=== PATIENT | female | born 1980 | race Caucasian/White ===

== ENCOUNTER 2024-12-13 06:16 | Day surgery (SDC) | payer OTHER, SELFPAY | END 2024-12-13 12:16 | disposition home or self-care (01) | LOC: GI 06:16 | PROVIDERS: ATTENDING PHYSICIAN Internal Medicine | DX: Z12.11 Encounter for screening for malignant neoplasm of colon (principal); K64.8 Other hemorrhoids; D12.5 Benign neoplasm of sigmoid colon | CPT/HCPCS: 45385; 88305 ==

== ENCOUNTER 2025-04-13 12:57 | Emergency (ER) | payer OTHER, SELFPAY ==
[2025-04-13 13:01] VITALS: BP 126/75
[2025-04-13 13:14] LABS: % Basophils 0.5 % (0-2); % Eosinophils 3.2 % (0-6); % Immature Granulocytes 0.2 % (0-0.5); % Lymphocytes 38.2 % (20.5-51.1); % Monocytes 7.2 % (1.7-9.3); % Neutrophils 50.7 % (42.2-75.2); Absolute Eosinophils 0.3 10^3/uL (0-0.7); Absolute Lymphocytes 3.3 10^3/uL (1.2-3.4); Absolute Monocytes 0.6 10^3/uL (0.1-0.6); Absolute Neutrophils 4.4 10^3/uL (1.4-6.5); Hematocrit 36.5 % (37.0-47.0); Hemoglobin 12.6 g/dL (12.0-16.0); Mean Corp Hgb Conc. 34.5 g/dL (33.0-37.0); Mean Corpuscular Hgb 31.8 pg (27.0-31.0); Mean Corpuscular Volume 92.2 fL (81.0-99.0); Mean Platelet Volume 9.6 fL (7.4-10.4); Nucleated Red Blood Cells % 0 %; Platelet Count 279 10^3/uL (130-400); Red Blood Cell Count 3.96 10^6/uL (4.20-5.40); Red Cell Dist. Width 11.9 % (11.5-14.5); White Blood Cell Count 8.7 10^3/uL (4.8-10.8)
[2025-04-13 13:30] LABS: PT 12.6 Sec (11.4-14.6)
[2025-04-13 13:31] LABS: ALT (SGPT) 18 U/L (0-35); AST (SGOT) 24 U/L (14-36); Albumin 4.6 g/dl (3.5-5.0); Alkaline Phosphatase 38 U/L (38-126); Blood Urea Nitrogen 17 mg/dl (7-17); Calcium 9.3 mg/dl (8.4-10.2); Carbon Dioxide 24 mmol/L (22-30); Chloride 108 mmol/L (98-107); Glucose 97 mg/dl (70-99); Potassium 4.6 mmol/L (3.5-5.1); Sodium 140 mmol/L (135-145); Total Bilirubin 0.5 mg/dl (0.2-1.3); Total Protein 7.2 g/dl (6.3-8.2); eGFR > 60.00
--- NOTE | 2025-04-13 14:29 | ED.GENMED ---
History of Present Illness
General
Chief Complaint: DVT/Possible Blood Clot
Source: patient
Exam Limitations: none
Time Seen by Provider: 04/13/25 14:07
Nursing documentation reviewed up to this point in time: agreed with
History of Present Illness
History of Present Illness:
Patient is a 39-year-old female with past medical history of clotting disorder she believes possible antiphospholipid syndrome, being worked up for autoimmune disorder on hormone replacement therapy presents to the ER for evaluation of left eye
discomfort. She reports this morning she woke up and she felt a funny feeling in the left medial inner distal thigh. She was concerned for DVT. She is on hormone replacement therapy and along with her clotting disorder mentions that she was also
in a long 14-hour flight . She did however take one baby aspirin for the week prior during and after the medication.
She has no history of prior DVT in the past.
No complaints of shortness of breath.
She denies any injury. Denies any redness fever chills or swelling to the area
Past History
Past History
ED Past Medical History: None
ED Past Surgical History: Gynecological
Social History
Tobacco: Non-smoker
Alcohol: None
Drug: None
Personal:
Living: with family
Employment: Employed
Review of Systems
Review of Systems
Allergies reviewed?: Yes
All Other Systems: ROS reviewed and negative except as documented in HPI and ROS
Constitutional: Reports no symptoms
Musculoskeletal: Reports other (left medial thigh discomfort )
Skin: Reports no symptoms
Psychiatric: Reports no symptoms
Phy Exam
General Physical Exam
General Presentation: no apparent distress
General age: appears stated age
General Skin: warm and dry
General Habitus: normal
General Mental: alert
General Hydration: appears well hydrated
Neurological Exam
Neurological Exam: alert and oriented x3
Musculoskeletal Exam
Musculoskeletal Exam: other (lle with strong pulses no obvious swelling to thigh , no erythema no rash )
Skin Exam
Skin Exam: normal color and warm/dry
Psychiatric Exam
Psychiatric Exam: normal mood/affect
Course
Orders/Labs/Results
Orders:
Orders
04/13/25 13:00
Periph Venous Lwr Ext Left US [US Periph Venous LOWER Ext LT] Urgent
Comment:
Reason For Exam: pain in left mid thigh
04/13/25 13:09
Complete Blood Count/With Diff Urgent
Comprehensive Metabolic Panel Urgent
PT/INR [Prothrombin Time] Urgent
Abnormal Lab Results
04/13/25
13:09
RBC 3.96 L 10^6/uL
(4.20-5.40)
Hct 36.5 L %
(37.0-47.0)
MCH 31.8 H pg
(27.0-31.0)
Chloride 108 H mmol/L
(98-107)
04/13/25 13:09
04/13/25 13:09
Vital Signs
Initial and Last Documented VS:
Initial Vital Signs
Temp Pulse Resp BP Pulse Ox
98.5 F 78 16 126/75 98
04/13/25 13:01 04/13/25 13:01 04/13/25 13:01 04/13/25 13:01 04/13/25 13:01
Last Documented Vital Signs
Temp Pulse Resp BP Pulse Ox
98.5 F 78 16 126/75 98
04/13/25 13:01 04/13/25 13:01 04/13/25 13:01 04/13/25 13:01 04/13/25 13:01
MDM/Problems Addressed
Differential Diagnosis Includes:
Not limited to superficial thrombophlebitis, DVT muscle pain, nerve pain /sciatica
MDM/Problems Addressed:
Ultrasound negative for DVT no obvious swelling or redness on exam no fevers. No injury. Patient does have a history of clotting disorder and is on hormone replacement therapy. Discussed close outpatient follow-up for repeat reevaluation and
possible ultrasound if symptoms continue.
*Radiology
Radiology exam reviewed: radiology read reviewed
*Pulse Oximetry
Patient hypoxic: no
*Critical Care Note
Total Time (30-74mins, 75-104mins- exclusive of procedures): Not Applicable
ED Attending Note
-
Portions of this chart may have been created with voice recognition software.� Occasional wrong word or��sound alike� substitutions may have occurred due to the inherent limitations of voice recognition software.
Discharge Plan
Departure
Patient Disposition: Home (Routine Discharge)
Date of Disposition: 04/13/25
Time of Disposition: 14:43
Patient with high blood pressure during this ER visit?: No
Condition: Fair
Covid-19: Not Applicable
Discharge Problem:
leg pain
Prescriptions:
No Action
Vitamins
cefuroxime axetil 500 MG tablet
500 mg PO BID Qty: 28 0RF
Referrals:
NONE,* [Family Provider, Internal Medicine]
Activity Restrictions/Additional Instructions:
As discussed your ultrasound was negative for DVT. Please continue to follow-up with your family doctor in the next several days for reevaluation. If symptoms persist or continue you may need to have a repeat ultrasound.
Return if any worsening of symptoms of increased pain swelling redness drainage fever chills
Interventions
Interventions:
*Risk Screen - Suicide Last Done: 04/13/25 13:01
*General Assessment Last Done: 04/13/25 13:01
*Neglect/Abuse Screening Last Done: 04/13/25 13:01
*ED- Fall Risk Assessment Last Done: 04/13/25 13:01
*ED COVID-19 Vaccine History Last Done: 04/13/25 13:01
*Nursing Disposition Last Done: 04/13/25 14:51
ED-Peripheral Vascular Assessment Last Done: 04/13/25 14:50
ED-Skin Assessment Last Done: 04/13/25 14:50
Discharge Date and Time
Discharge Date/Time: 04/13/25 14:54
Print Language: BENGALI
== END 2025-04-13 14:54 | disposition home or self-care (01) ==
LOC: EMR 12:57
PROVIDERS: Emergency Medicine; EMERGENCY PHYSICIAN Emergency Medicine
DX: M79.605 Pain in left leg (principal); D68.9 Coagulation defect, unspecified; Z79.890 Hormone replacement therapy
CPT/HCPCS: 99284; 80053; 85025; 85610; 93971